=== PATIENT | female | born 1980 | race Asian ===

== ENCOUNTER 2018-11-25 12:18 | Emergency (ER) | payer OTHER, BC | END 2018-11-25 13:24 | disposition home or self-care (01) | LOC: JERFT 12:18 ==

== ENCOUNTER 2023-10-19 23:46 | Emergency (ER) | payer BC ==
[2023-10-19 23:55] VITALS: PULSE 89; RESP 18; TEMP 98.3; BMI 24.2
[2023-10-20] MEDS ORDERED: ONDANSETRON *ODT* 4 MG TABLET ONE (00:48)
[2023-10-20] MEDS: ONDANSETRON *ODT* 4 MG TABLET SL ONE (00:49)
[2023-10-20 01:14] VITALS: BP 170/95
[2023-10-20] MEDS ORDERED: VALSARTAN 80 MG TABLET ONE (01:20)
[2023-10-20] MEDS: VALSARTAN 80 MG TABLET PO ONE (01:22)
[2023-10-20] MEDS: VALSARTAN 40 MG TABLET PO ONE (01:22)
== END 2023-10-20 01:26 | disposition home or self-care (01) ==
LOC: JER 23:46
DX: S00.93XA Contusion of unspecified part of head, initial encounter (principal); G44.319 Acute post-traumatic headache, not intractable; I10 Essential (primary) hypertension; R11.0 Nausea; W01.0XXA Fall on same level from slipping, tripping and stumbling without subsequent striking against object, initial encounter; Y93.01 Activity, walking, marching and hiking; Y92.009 Unspecified place in unspecified non-institutional (private) residence as the place of occurrence of the external cause
CPT/HCPCS: 70450-TC; 72125-TC; 99284-25; Q0162